=== PATIENT | male | born 1995 | race Caucasian/White ===

== ENCOUNTER 2018-07-20 22:27 | Emergency (ER) | payer SELFPAY ==
[~2018-07-20] VITALS: Ht 167.6 cm; Wt 60.3 kg
[2018-07-20 22:34] VITALS: Ht 167.6 cm; Wt 60.3 kg
[2018-07-20 23:25] LABS: BASOPHIL % 0.6 % (0-2); PLATELET COUNT 272 x10^3mcL (130-400); RED CELL DISTRIBUTION WIDTH 12.6 % (11.5-14.5)
[2018-07-20 23:27] LABS: microscopic required? YES; urine erythrocyte NEGATIVE (NEGATIVE)
[2018-07-20 23:38] LABS: AMPHETAMINE QUAL UR NONE DETECTED (See below)
[2018-07-20 23:50] LABS: CALCIUM 9.4 mg/dL (8.5-10.1); CARBON DIOXIDE 26.4 mmol/L (21-32); CHLORIDE SERUM 104 mmol/L (98-107); CREATININE SERUM 0.9 mg/dL (0.7-1.3); GFR1 > 60 mL/min; GLUCOSE SERUM 136 mg/dL (74-106); SODIUM SERUM 142 mmol/L (136-145)
[2018-07-20 23:54] LABS: ALKALINE PHOSPHATASE 147 U/L (46-116); ALT/SGPT 16 U/L (16-63); AST/SGOT 9 U/L (15-37); BILIRUBIN TOTAL 0.18 mg/dL (0.20-1.00); FREE T4 1.06 ng/dL (0.76-1.46); LIPASE 124 IU/L (73-393); MAGNESIUM 1.7 mg/dL (1.8-2.4); TOTAL PROTEIN, SERUM 7.1 g/dL (6.4-8.2)
[2018-07-21 04:51] VITALS: BP 120/70
== END 2018-07-21 04:51 | disposition home or self-care (01) ==
LOC: ED 22:27
PROVIDERS: Emergency Medicine
DX: E87.6 Hypokalemia (principal); E83.42 Hypomagnesemia
CPT/HCPCS: 83880; 84439; G0480; J3475; J7030; Q9967

== ENCOUNTER 2018-11-16 02:50 | Emergency (ER) | payer MEDICAID ==
[~2018-11-16] VITALS: Ht 167.6 cm; Wt 87.5 kg
[2018-11-16 02:59] VITALS: Ht 167.6 cm; Wt 87.5 kg
[2018-11-16 04:19] LABS: BASOPHIL % 0.5 % (0-2); PLATELET COUNT 329 x10^3mcL (130-400); RED CELL DISTRIBUTION WIDTH 12.7 % (11.5-14.5)
[2018-11-16 04:40] LABS: CALCIUM 8.4 mg/dL (8.5-10.1); CARBON DIOXIDE 28.1 mmol/L (21-32); CHLORIDE SERUM 107 mmol/L (98-107); CREATININE SERUM 0.8 mg/dL (0.7-1.3); GFR1 > 60 mL/min; GLUCOSE SERUM 120 mg/dL (74-106); POTASSIUM SERUM 3.8 mmol/L (3.5-5.1); SODIUM SERUM 142 mmol/L (136-145)
[2018-11-16 04:44] LABS: ALBUMIN 3.7 g/dL (3.4-5.0); ALKALINE PHOSPHATASE 196 U/L (46-116); ALT/SGPT 62 U/L (16-63); AST/SGOT 31 U/L (15-37); BILIRUBIN TOTAL 0.16 mg/dL (0.20-1.00); TOTAL PROTEIN, SERUM 6.7 g/dL (6.4-8.2)
[2018-11-16 05:06] LABS: ERYTHROCYTE SED RATE 8 mm/hr (0-15)
[2018-11-16 05:21] VITALS: BP 120/63
== END 2018-11-16 05:21 | disposition home or self-care (01) ==
LOC: ED 02:50
PROVIDERS: Emergency Medicine
DX: S29.011A Strain of muscle and tendon of front wall of thorax, initial encounter (principal); M94.0 Chondrocostal junction syndrome [Tietze]; Y93.89 Activity, other specified; Y92.34 Swimming pool (public) as the place of occurrence of the external cause; Y99.8 Other external cause status
CPT/HCPCS: 36415